=== PATIENT | male | born 1995 | race Caucasian/White ===

== ENCOUNTER 2017-03-16 13:13 | Emergency (ER) | payer OTHER ==
[~2017-03-16] VITALS: Ht 162.6 cm; Wt 63.5 kg
--- NOTE | ~2017-03-16 | EKG ---
[address] [address] ELECTROCARDIOGRAM REPORT Name: SRIKANTH PETERSEN Room #: [facility]P 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
[2017-03-16 13:15] VITALS: BP 133/71
== END 2017-03-16 14:14 | disposition home or self-care (01) ==
LOC: ER 13:13
DX: R55 Syncope and collapse (principal); Z88.0 Allergy status to penicillin; Z88.5 Allergy status to narcotic agent; R56.9 Unspecified convulsions